=== PATIENT | male | born 1970 | race African-American/Black ===

== ENCOUNTER 2020-01-12 12:37 | Inpatient (IN) | payer MEDICAID ==
[~2020-01-12] VITALS: Ht 167.6 cm; Wt 87.1 kg
[2020-01-12 16:14] VITALS: BP 118/87
[2020-01-12] MEDS ORDERED: OLANZapine 5 MG TABLET PO PRN (16:30)
[2020-01-12] MEDS ORDERED: PNEUMOCOCCAL VACCINE POLYVALENT 0.5 ML VIAL [PPSV23] IM ONE (17:45)
[2020-01-12 18:30] VITALS: BP 138/89
[2020-01-12] MEDS ORDERED: NICOTINE 14 MG/24 HOUR PATCH TD PRN (21:00)
[2020-01-13 06:23] VITALS: BP 114/67
[2020-01-13 07:19] LABS: BASOPHILS % (AUTO) 0.7 % (0.0-2.0); HEMATOCRIT 51.1 % (41-53); LYMPHOCYTES # (AUTO) 1.8 K/uL (1.0-4.8); LYMPHOCYTES % (AUTO) 36.2 % (22.0-44.0); MEAN CORPUSCULAR HEMOGLOBIN 32.9 pg (26.0-34.0); MEAN CORPUSCULAR HGB CONC 33.3 G/dL (31.0-37.0); MEAN CORPUSCULAR VOLUME 99 fL (80-100); MONOCYTES # (AUTO) 0.4 K/uL (0.1-1.0); MONOCYTES % (AUTO) 7.9 % (2.0-9.0); NEUTROPHILS # (AUTO) 2.7 K/uL (1.8-7.7); NEUTROPHILS % (AUTO) 53.2 % (40.0-70.0); PLATELET COUNT (AUTO) 330 K/uL (150-450); RED BLOOD CELL COUNT(AUTO) 5.16 MIL/uL (4.50-5.90)
[2020-01-13 07:48] LABS: ALANINE AMINOTRANSFERASE 24 U/L (12-78); ALBUMIN 3.3 g/dL (3.4-5.0); ALKALINE PHOSPHATASE 50 U/L (46-116); ANION GAP 8 mmol/L (8-16); ASPARTATE AMINOTRANSFERASE 15 U/L (15-37); BILIRUBIN,TOTAL 0.4 mg/dL (0.1-1.0); CALCIUM, TOTAL 9.2 mg/dL (8.8-10.5); CARBON DIOXIDE 27 mmol/L (22-29); CHLORIDE 102 mmol/L (98-107); CHOL/HDL RATIO 2.7 (4.2-7.3); CHOLESTEROL 154 mg/dL (131-200); CREATININE 1.17 mg/dL (0.60-1.30); GLOMERULAR FILTR. RATE CALC > 60 mL/min (>60); GLUCOSE,RANDOM 84 mg/dL (70-110); HDL CHOLESTEROL 57 mg/dL (40-60); LDL CHOL (CALC.) 84 mg/dL (0-130); POTASSIUM 4.2 mmol/L (3.5-5.1); SODIUM SERUM 137 mmol/L (136-145); TRIGLYCERIDES 67 mg/dL (15-150); UREA NITROGEN, BLOOD 15 mg/dL (7-18)
[2020-01-13 07:56] LABS: HEMOGLOBIN A1C 5.4 % (3.8-5.6)
[2020-01-13 08:07] VITALS: BP 124/63
[2020-01-13] MEDS ORDERED: ALBUTEROL SULFATE HFA 90 MCG/PUFF 8 GM INHALER IH PRN (11:30)
[2020-01-13] MEDS ORDERED: LOPERAMIDE HCL 2 MG CAPSULE PO PRN (11:30)
[2020-01-13] MEDS ORDERED: MAGNESIUM HYDROXIDE SUSPENSION 30 ML UDCUP PO PRN (11:30)
[2020-01-13] MEDS ORDERED: PETROLATUM,WHITE 28 GM JELLY TP PRN (11:30)
[2020-01-13] MEDS ORDERED: NICOTINE 14 MG/24 HOUR PATCH TD PRN (11:30)
[2020-01-13] MEDS ORDERED: MAG HYDROX/AL HYDROX/SIMETH ES 30 ML SUSPENSION UDCUP PO PRN (11:30)
[2020-01-13] MEDS ORDERED: CloNIDine HCL 0.1 MG TABLET PO PRN (11:30)
[2020-01-13] MEDS ORDERED: ACETAMINOPHEN 325 MG TABLET PO PRN (11:30)
[2020-01-13] MEDS ORDERED: DOCUSATE SODIUM 100 MG CAPSULE PO PRN (11:30)
[2020-01-13] MEDS ORDERED: ONDANSETRON HCL 4 MG TABLET PO PRN (11:30)
[2020-01-13] MEDS ORDERED: GuaiFENesin/D-METHORPHAN [SUGAR-FREE] 200-20MG/10 ML SYRUP UDCUP PO PRN (11:30)
[2020-01-13 16:00] VITALS: BP 114/65
[2020-01-13] MEDS: ARIPiprazole 5 MG TABLET PO SCH (20:09)
[2020-01-13] MEDS: ESCITALOPRAM OXALATE 10 MG TABLET PO SCH (20:09)
[2020-01-13] MEDS: LORazepam 2 MG TABLET PO PRN (20:09)
[2020-01-14 06:13] VITALS: BP 122/70
[2020-01-14 08:00] VITALS: BP 118/64
[2020-01-14 16:10] VITALS: BP 128/72
[2020-01-14] MEDS: LORazepam 2 MG TABLET PO PRN (16:26)
[2020-01-14] MEDS: ARIPiprazole 5 MG TABLET PO SCH (20:13)
[2020-01-14] MEDS: ESCITALOPRAM OXALATE 10 MG TABLET PO SCH (20:13)
[2020-01-15 01:11] VITALS: BP 122/69
[2020-01-15 08:30] VITALS: BP 122/70
[2020-01-15 16:02] VITALS: BP 134/85
[2020-01-15] MEDS: ESCITALOPRAM OXALATE 10 MG TABLET PO SCH (21:39)
[2020-01-15] MEDS: ARIPiprazole 5 MG TABLET PO SCH (21:39)
[2020-01-16 04:32] VITALS: BP 127/72
[2020-01-16 08:14] VITALS: BP 115/98
[2020-01-16 16:02] VITALS: BP 123/78
[2020-01-16] MEDS: ESCITALOPRAM OXALATE 10 MG TABLET PO SCH (21:04)
[2020-01-16] MEDS: ARIPiprazole 5 MG TABLET PO SCH (21:04)
[2020-01-17 05:52] VITALS: BP 113/76
[2020-01-17 08:09] VITALS: BP 120/70
[2020-01-17] MEDS ORDERED: TUBERCULIN, PURIFIED PROTEIN DERIVATIVE 5 TU/0.1 ML SYRINGE ID ONE (10:15)
[2020-01-17 16:00] VITALS: BP 120/80
[2020-01-17] MEDS: ARIPiprazole 5 MG TABLET PO SCH (20:27)
[2020-01-17] MEDS: ESCITALOPRAM OXALATE 10 MG TABLET PO SCH (20:27)
[2020-01-18 08:20] VITALS: BP 126/72
[2020-01-18] MEDS: LORazepam 2 MG TABLET PO PRN (16:16)
[2020-01-18 16:29] VITALS: BP 111/77
[2020-01-18] MEDS: ESCITALOPRAM OXALATE 10 MG TABLET PO SCH (20:54)
[2020-01-18] MEDS: ARIPiprazole 5 MG TABLET PO SCH (20:54)
[2020-01-19 06:17] VITALS: BP 121/81
[2020-01-19 08:21] LABS: APPEARANCE,URINE TURBID (CLEAR); BILIRUBIN,URINE NEGATIVE (NEGATIVE); GLUCOSE, URINE (UA) NEGATIVE (NEGATIVE); KETONES,URINE NEGATIVE (NEGATIVE); LEUKOCYTE ESTERASE ,URINE SMALL (NEGATIVE); NITRATE,URINE NEGATIVE (NEGATIVE); OCCULT BLOOD,URINE NEGATIVE (NEGATIVE); PROTEIN,URINE NEGATIVE (NEGATIVE); UROBILINOGEN,URINE 0.2 mg/dL (<=1.0)
[2020-01-19 08:25] LABS: AMPHET/METH SCREEN,URINE NEGATIVE (NEGATIVE); BARBITURATE SCREEN, URINE NEGATIVE (NEGATIVE); BENZODIAZEPINES SCREEN,URINE POSITIVE (NEGATIVE); CANNABINOID SCREEN,URINE NEGATIVE (NEGATIVE); COCAINE SCREEN,URINE NEGATIVE (NEGATIVE); METHADONE SCREEN, URINE NEGATIVE (NEGATIVE); OPIATE SCREEN,URINE NEGATIVE (NEGATIVE)
[2020-01-19 08:28] LABS: PHENCYCLIDINE SCREEN,URINE POSITIVE (NEGATIVE)
[2020-01-19 08:42] LABS: AMORPHOUS SEDIMENT,UR Many /LPF (None Seen); BACTERIA,URINE None Seen /HPF (None Seen); RBC,URINE None Seen /HPF (0-2); SQUAMOUS EPITHELIAL CELL,UR Few /LPF (None Seen)
[2020-01-19 08:45] VITALS: BP 120/67
[2020-01-19 16:01] VITALS: BP 136/84
[2020-01-19] MEDS: ESCITALOPRAM OXALATE 10 MG TABLET PO SCH (20:27)
[2020-01-19] MEDS: ARIPiprazole 5 MG TABLET PO SCH (20:27)
[2020-01-20 06:40] VITALS: BP 132/83
[2020-01-20] MEDS: IBUPROFEN 400 MG TABLET PO PRN (06:42)
[2020-01-20 11:00] VITALS: BP_SYST 81; BP_SYST 99; BP_DIAS 58; BP_DIAS 66
[2020-01-20 11:15] VITALS: BP 99/66
[2020-01-20 11:45] VITALS: BP_SYST 105; BP_SYST 87; BP_DIAS 63; BP_DIAS 70
[2020-01-20] MEDS ORDERED: TraMADol HCL 50 MG TABLET PO PRN (14:00)
[2020-01-20 16:02] VITALS: BP 107/51
[2020-01-20] MEDS ORDERED: ARIP5TAB8 PO (18:39)
[2020-01-20] MEDS ORDERED: ESCI10TA PO (18:39)
[2020-01-20] MEDS: ESCITALOPRAM OXALATE 10 MG TABLET PO SCH (20:59)
[2020-01-20] MEDS: ARIPiprazole 5 MG TABLET PO SCH (20:59)
[2020-01-21 07:11] VITALS: BP 108/76
[2020-01-21 08:13] VITALS: BP 111/79
[2020-01-21 16:03] VITALS: BP 101/57
[2020-01-21 17:20] VITALS: BP 101/57
[2020-01-21] MEDS: IBUPROFEN 400 MG TABLET PO PRN (18:44)
[2020-01-21] MEDS: ESCITALOPRAM OXALATE 10 MG TABLET PO SCH (21:00)
[2020-01-21] MEDS: ARIPiprazole 5 MG TABLET PO SCH (21:00)
[2020-01-22 06:15] VITALS: BP 106/59
[2020-01-22 08:13] VITALS: BP 110/60
[2020-01-22 16:05] VITALS: BP 133/72
[2020-01-22] MEDS: IBUPROFEN 400 MG TABLET PO PRN (17:19)
[2020-01-22] MEDS: ARIPiprazole 5 MG TABLET PO SCH (20:56)
[2020-01-22] MEDS: ESCITALOPRAM OXALATE 10 MG TABLET PO SCH (20:57)
[2020-01-23 06:07] VITALS: BP 122/72
[2020-01-23 08:24] VITALS: BP 121/66
[2020-01-23 15:59] VITALS: BP 104/70
[2020-01-23 16:00] VITALS: BP 104/70
[2020-01-23] MEDS: ESCITALOPRAM OXALATE 10 MG TABLET PO SCH (20:52)
[2020-01-23] MEDS: ARIPiprazole 5 MG TABLET PO SCH (20:52)
[2020-01-24 06:34] VITALS: BP 103/81
[2020-01-24 08:03] VITALS: BP 121/87
[2020-01-24 16:01] VITALS: BP 119/75
== END 2020-01-24 17:20 | disposition home or self-care (01) | DRG 750 ==
LOC: B3A 16:32
PROVIDERS: ADMIT Psychiatry & Neurology Child & Adolescent Psychiatry; ATTEND Psychiatry & Neurology Child & Adolescent Psychiatry
DX: F25.1 Schizoaffective disorder, depressive type (principal); Z59.0 Homelessness; F10.10 Alcohol abuse, uncomplicated; F15.10 Other stimulant abuse, uncomplicated; F41.9 Anxiety disorder, unspecified; I10 Essential (primary) hypertension; K21.9 Gastro-esophageal reflux disease without esophagitis; F19.10 Other psychoactive substance abuse, uncomplicated
CPT/HCPCS: 80307; 83036; 87081